=== PATIENT | female | born 1970 | race African-American/Black ===

== ENCOUNTER → 2022-09-26 13:52 | Outpatient (CLI) | payer OTHER, SELFPAY ==
--- NOTE | ~2022-09-26 | US_ITS ---
EXAMINATION: US transvaginal DATE: 09/26/2022 14:32 INDICATION: Post menopausal bleeding TECHNIQUE: Multiple transabdominal and endovaginal sonographic images of the pelvis were obtained. COMPARISON: None. FINDINGS: Uterus: 9.6 x 8.1 x 8.3 cm. Multiple uterine fibroids, which limit visualization of the uterine paren chyma and endometrium, largest fibroid measures up to 6.7 cm. Endometrial complex measures up to 8 mm . Right Ovary: Not visualized. Left Ovary: Not visualized. There is no free fluid in the pelvis. IMPRESSION: Multiple uterine fibroids. Endometrial thickening to 8 mm, consider referral for endometrial sampling. Bilateral ovaries were not visualized in this examination. Reviewed, dictated and finalized at location K.
== END ==
PROVIDERS: PCP Advanced Practice Midwife; Visit Provider Advanced Practice Midwife
DX: N95.0 Postmenopausal bleeding (principal); D25.9 Leiomyoma of uterus, unspecified
CPT/HCPCS: 76830

== ENCOUNTER 2022-10-10 02:43 | Day surgery (SDC) | payer OTHER, SELFPAY ==
[2022-09-30 10:01] VITALS: BMI 44.7
--- NOTE | 2022-09-30 10:10 | PC.NURSE ---
Report to the Outpatient Waiting Room, entrance under the green pavilion located off [facility], at time 9:15 on date 10/10/22. Planned Procedure Time: 11:15. Time changes happen often and if your time is changed the preop area will call you the afternoon before. - You and your visitor will be asked to self-screen and do not enter if you have any COVID symptoms. - A mask is optional within the hospital at this time. Patients may have clear liquids (water, carbonated beverages, clear teas, apple juice) until 3 hours prior to surgery with a maximum of 20 ounces. - No food from midnight until time of surgery Take the following medications with a SIP of water the morning of surgery: 1/2 DOSE INSULIN DO NOT STOP ANY OF YOUR OTHER PRESCRIPTION MEDICATIONS PRIOR TO SURGERY ?EXCEPT THE FOLLOWING Medications to discontinue per physician: N/A Date to take last dose: N/A Please no make-up, nail emirati, hairspray, perfume, deodorant, or body powder the day of surgery. No jewelry (including any body piercings) or valuables the day of surgery, leave them at home. Please take a shower or bath the night before, or the morning of, surgery with an antibacterial soap. Wear comfortable, loose fitting clothing. - Jewelry must be removed prior to entering the operating room. Rings and piercings that are not removed may be cut off. - The hospital will not accept responsibility for valuables. - Please leave all valuables, including medications, at home the day of surgery. If you are going home after surgery, a licensed sprinkling truck driver must drive you home. - NO public transportation without another adult if you receive anesthesia. - We recommend that an adult stay with you for 24 hours following discharge. - We also recommend that you do not drive, make important decision, drink alcoholic beverages, or take any drugs that were not prescribed by your health care provider for at least 24 hours after your discharge time. Follow any additional instructions given to you from your surgeon. If you or anyone in your household have experienced Covid symptoms in the past week, please notify your surgeon or the nurse liaison at the phone number below for possible testing. Telephone instructions given to PT - DALE IQBAL and asked if any additional questions and then verbalized understanding. Patient advised to call surgeon office or pre surgery nurse liaison [phone] if any additional questions.
[2022-10-10] VITALS (9 sets, daily range): BP systolic 107–146; BP diastolic 53–88; PULSE 62–82; RESP 12–20; TEMP 36.5–36.7; O2SAT 96–100
[2022-10-10] MEDS: LACTATED RINGERS 1,000 ML 30 ML IV CONT (07:30)
[2022-10-10] MEDS: ACETAMINOPHEN 500 MG TABLET 1000 MG PO (07:41)
--- NOTE | 2022-10-10 07:54 | WPDHPUPDATE1 ---
History and Physical Update Update Date/Time: 10/10/22 07:54 History and Physical has been reviewed, including an updated exam of the patient. There are NO changes in the patient's condition. Risks, benefits, and alternatives have been discussed and questions answered. Patient agrees to proceed with procedure.
--- NOTE | 2022-10-10 07:54 | PM.HPGS ---
History of Present Illness History of Present Illness Consent: Risks, benefits, and alternatives have been discussed and questions answered. Patient agrees to proceed with procedure. Chief complaint: postmenopausal bleeding, fibroids Narrative: Janene Hernandez is a 52 year old female with an episode lasting for 5 days of postmenopausal bleeding that began after intercourse. Pelvic ultrasound showed a thickened endometrium at 8mm. It was recommended to undergo D&C hysteroscopy. Risks of infection, bleeding, perforation, and possible pathology were reviewed. Patient voices understanding and agrees to proceed. Review of Systems Review of Systems: not repeated day of surgery; patient states no changes in status [facility] Past Medical History Medical History (Updated 10/10/22 @ 07:58 by Leandra Freitas MD) Chlamydia 2006 Diabetes (normal spontaneous vaginal delivery) x2 Pituitary microadenoma Trichomonas vaginitis treated July of 2022 Surgical History Surgical History (Updated 10/10/22 @ 07:57 by Leandra Freitas MD) History of brain surgery 1998 Social History Social History Smoking status: Never smoker Alcohol intake: current Alcohol use details: 2/MONTH Substance use: never Substance use type: does not use Living arrangements: with family Additional living arrangements comments: CHILDREN Spiritual care concerns: No Meds Home Medications and Allergies Home Medications Medication Instructions Recorded Confirmed Type insulin aspart U-100 100 unit/mL 46 unit subcut TIDWM 09/30/22 09/30/22 History subcutaneous solution (Novolog U-100 Insulin aspart) insulin detemir U-100 100 unit/mL 60 unit subcut HS 09/30/22 09/30/22 History subcutaneous solution (Levemir U-100 Insulin) Allergies Allergy/AdvReac Type Severity Reaction Status Date / Time No Known Allergies Allergy Verified 09/30/22 10:03 Exam Const: General: healthy appearing, alert and obese ( BMI of 45) Orientation/consciousness: patient oriented x3 Resp: Effort & Inspection: normal respiratory effort Auscultation: clear to auscultation bilaterally Cardio: Rate: regular rate Rhythm: regular rhythm GI: GI Palp: Yes Soft to palpation, No Tenderness to palpation present (GI) and No Palpable mass present : External Female Exam: normal external appearance Speculum Exam - Vagina: normal appearance of the vagina and normal vaginal discharge Speculum Exam - Cervix: normal appearance of the cervix Bimanual exam- vagina & uterus: uterine size normal and consistency normal Bimanual Exam- Adnexa, other: normal adnexae and No adnexal tenderness Neuro: General: patient oriented x3 Assessment and Plan Assessment and plan (1) Post-menopausal bleeding: Code(s): N95.0 - Postmenopausal bleeding Status: Acute Assessment and Plan: Postmenopausal bleeding with thickened endometrium. Plan to proceed with D&C hysteroscopy.
[2022-10-10 08:01] LABS: Anion Gap 5 mmol/L (8-16); Blood Urea Nitrogen 11 mg/dL (7-17); Calcium 8.8 mg/dL (8.4-10.2); Carbon Dioxide 27 mmol/L (22-30); Chloride 100 mmol/L (98-107); Estimated CRCL calculation 133 ml/min; Estimated Glomerular Filt Rate > 60; Glucose 274 mg/dL (65-110); Potassium 3.7 mmol/L (3.4-5.0); Sodium 132 mmol/L (137-145)
--- NOTE | 2022-10-10 08:29 | WPDANESEPPF ---
Anes - Initial Pre Proc Eval Procedure: Operation Date: 10/10/22 09:00 Proposed Procedures p Hysteroscopy Dilation and Curettage - Leandra Freitas MD Date/Time: 10/10/22 08:29 Surgeon: Leandra Freitas MD Pre Op Diagnosis: postmenopausal bleeding, fibroids Patient Data Age: 52 Gender: F Height: 1.71 m Weight: 131 kg Last Vital Signs Temp 36.7 C 10/10/22 06:30 Pulse 78 10/10/22 06:30 Resp 16 10/10/22 06:30 BP 146/88 H 10/10/22 06:30 Pulse Ox 99 10/10/22 06:30 O2 Del Method Room Air 10/10/22 06:30 Allergies Allergy/AdvReac Type Severity Reaction Status Date / Time No Known Allergies Allergy Verified 10/10/22 08:22 Home Medications Medication Instructions Recorded Confirmed Type insulin aspart U-100 100 unit/mL 46 unit subcut TIDWM 09/30/22 09/30/22 History subcutaneous solution (Novolog U-100 Insulin aspart) insulin detemir U-100 100 unit/mL 60 unit subcut HS 09/30/22 09/30/22 History subcutaneous solution (Levemir U-100 Insulin) Laboratory Tests 10/10/22 07:20 Sodium 132 L mmol/L (137-145) Potassium 3.7 mmol/L (3.4-5.0) Chloride 100 mmol/L (98-107) Carbon Dioxide 27 mmol/L (22-30) Anion Gap 5 L mmol/L (8-16) BUN 11 mg/dL (7-17) Creatinine 0.60 L mg/dL (0.7-1.0) Estim Creat Clear Calc 133 ml/min Estimated GFR > 60 (59 - ) Glucose 274 H mg/dL (65-110) Calcium 8.8 mg/dL (8.4-10.2) Patient hx anesthesia problems: none Family hx anesthesia problems: none Results Review: All pre-operative results and documents have been reviewed as part of the pre-operative evaluation. [facility] Past Medical History Medical History Chlamydia 2006 Diabetes (normal spontaneous vaginal delivery) x2 Pituitary microadenoma Trichomonas vaginitis treated July of 2022 Surgical History Surgical History History of brain surgery 1998 Social History Social History Smoking status: Never smoker Alcohol intake: current Alcohol use details: 2/MONTH Substance use: never Substance use type: does not use Living arrangements: with family Additional living arrangements comments: CHILDREN Spiritual care concerns: No Anes - Eval Final PreProcedure Day of Procedure 10/10/22 08:29 Patient weight: morbidly obese Heart: regular rate and rhythm Lungs: clear to auscultation Airway: Mallampati scale class II Neurological: alert and oriented Last oral intake: >/= 8 hours ASA classification: III Emergent: no Anesthetic plan: proceed Anesthesia type and monitoring: general GIVS and standard monitoring Results Review: All pre-operative results and documents have been reviewed as part of the pre-operative evaluation. Informed Consent: The patient's anesthetic plan and its attendant risks and benefits were discussed with the patient/family/POA. Questions were solicited and answers provided to the satisfaction of the patient/family/POA.
[2022-10-10] MEDS: INSULIN HUMAN REGULAR (*BKC) 100 UNITS/ML 6 UNITS SUB-Q (08:50)
--- NOTE | 2022-10-10 09:39 | W.PM.PROC2 ---
Procedure Note - Detailed Date of Procedure 10/10/22 Pre-op Diagnosis postmenopausal bleeding, fibroids Post-op Diagnosis Same Procedure Performed D&C hysteroscopy Surgeon Leandra Freitas MD Anesthesia General ( converted from MAC to general with ET tube) and MAC Findings uterus sounds to 8cm and appears grossly normal; endometrium appears atrophic Description of Procedure The patient was taken to the operating room and placed under anesthesia in the dorsal lithotomy position. She was prepped and draped in the usual sterile fashion. [place] speculum was placed in the vagina and the cervix grasped on the anterior lip with a tenaculum. The uterus was sounded to 8cm and the patient began having coughing. The nurse business objects noted significant gastric fluid with food particles and decided to proceed with general and ET tube placement to protect the patient's airway. Once the patient was under anesthesia, the case continued. The hysteroscope was placed and with no abnormalities noted the hysteroscope was removed. The OO sharp curette is used to curette the endometrium until a good uterine cry was noted in all areas. All instruments are removed. Sponge, needle, and instrument counts are correct per the OR staff. The patient was awakened from anesthesia and taken to recovery in stable condition. Estimated Blood Loss 5 Drains No Packing No Pathology Yes ( Endometrial curettings) Complications No immediate complications Condition Stable Disposition PACU
[2022-10-10 10:00] LABS: Glucose Point of Care 271 mg/dl (65-105)
[2022-10-10] MEDS: ONDANSETRON INJ 4 MG/2 ML VIAL IV PUSH (11:28)
== END 2022-10-10 12:00 | disposition home or self-care (01) ==
PROVIDERS: Anesthesiology; Visit Provider Obstetrics & Gynecology Gynecology
PROC: 0U5B8ZZ Destruction of Endometrium, Via Natural or Artificial Opening Endoscopic (ICD-10-PCS; CPT 58563; principal; 2022-10-10 09:00)
DX: N95.0 Postmenopausal bleeding (principal); E11.9 Type 2 diabetes mellitus without complications; Z79.4 Long term (current) use of insulin; E66.01 Morbid (severe) obesity due to excess calories; Z68.41 Body mass index [BMI] 40.0-44.9, adult
CPT/HCPCS: 58558; 36415; 80048; 82948; 88305; A9270; J0330; J1100; J1815; J2250; J2405; J2704; J3010; J7120